=== PATIENT | male | born 1960 | race Hispanic/Latino ===

== ENCOUNTER 2021-04-28 14:49 | Inpatient (IN) | payer SELFPAY ==
[~2021-04-28] VITALS: Ht 165.1 cm; Wt 64.9 kg
[2021-04-28 15:20] VITALS: BP 139/77
[2021-04-28 15:21] LABS: BASOPHILS % (AUTO) 0.4 % (0.0-5.0); HEMATOCRIT 37.5 % (42-54); LYMPHOCYTES % (AUTO) 19.8 % (21.0-51.0); MEAN CORPUSCULAR HEMOGLOBIN 27.6 pg (27.0-33.0); MEAN CORPUSCULAR HGB CONC 34.4 g/dL (32.0-36.0); MEAN CORPUSCULAR VOLUME 80.1 fL (79-99); MONOCYTES % (AUTO) 12.6 % (3.0-13.0); NEUTROPHILS % (AUTO) 62.8 % (40.0-77.0); PLATELET COUNT (AUTO) 171 K/uL (130-400); RED BLOOD CELL COUNT(AUTO) 4.68 MIL/uL (4.50-6.20); WHITE BLOOD COUNT (AUTO) 4.5 K/uL (4.8-10.8)
[2021-04-28 15:31] LABS: CREATININE 0.8 mg/dL (0.5-1.5); POTASSIUM 4.3 mmol/L (3.5-5.1)
[2021-04-28 15:36] LABS: INR 0.97 (0.85-1.15); PROTHROMBIN TIME 10.6 SEC (9.6-11.6)
[2021-04-28 15:37] LABS: PARTIAL THROMBOPLASTIN TIME 28.8 SEC (26.3-35.5)
[2021-04-28 15:45] LABS: BILIRUBIN,TOTAL 0.4 mg/dL (0.2-1.0); TOTAL PROTEIN, SERUM 7.8 g/dL (6.0-8.3)
[2021-04-28 15:49] LABS: B-TYPE NATRIURETIC PEPTIDE 5 pg/mL (0-100)
[2021-04-28 16:39] LABS: APPEARANCE,URINE Clear (CLEAR); BILIRUBIN,URINE Negative (NEGATIVE); COLOR,URINE Yellow (YELLOW); GLUCOSE, URINE (UA) Negative (NEGATIVE); KETONES,URINE Negative (NEGATIVE); LEUKOCYTE ESTERASE ,URINE Negative (NEGATIVE); NITRATE,URINE Negative (NEGATIVE); OCCULT BLOOD,URINE Negative (NEGATIVE); PH,URINE 6.5 (5.0-8.0); PROTEIN,URINE Negative (NEGATIVE); UROBILINOGEN,URINE 0.2 mg/dL (0.2-1.0)
[2021-04-28] MEDS ORDERED: IOHEXOL-350 75 ML VIAL IV ONE (17:04)
[2021-04-28 18:09] VITALS: BP 150/79
[2021-04-28] MEDS ORDERED: ONDANSETRON 4MG INJ IV PRN (20:30)
[2021-04-28 20:36] VITALS: BP 128/76
[2021-04-28 21:28] LABS: HEMOGLOBIN A1C 6.4 % (4.0-6.0)
[2021-04-28] MEDS ORDERED: KETOROLAC 30MG VIAL (30MG/ML) IV ONE (21:30)
[2021-04-28] MEDS: LACTATED RINGERS 1000ML 1,000 ML IV SCH (21:59)
[2021-04-28] MEDS: FAMOTIDINE 20MG VIAL IV SCH (21:59)
[2021-04-28 22:31] LABS: AMPHET/METH SCREEN,URINE NEGATIVE (NEGATIVE); BARBITURATE SCREEN, URINE NEGATIVE (NEGATIVE); BENZODIAZEPINES SCREEN,URINE NEGATIVE (NEGATIVE); CANNABINOID SCREEN,URINE NEGATIVE (NEGATIVE); COCAINE SCREEN,URINE NEGATIVE (NEGATIVE); OPIATE SCREEN,URINE NEGATIVE (NEGATIVE); PHENCYCLIDINE SCREEN,URINE NEGATIVE (NEGATIVE)
[2021-04-29] VITALS (12 sets, daily range): BP systolic 117–148; BP diastolic 62–94
[2021-04-29 09:18] LABS: CHOLESTEROL 138 mg/dL (<200); HDL CHOLESTEROL 33 mg/dL (29-71); LDL DIRECT 90 mg/dL (0-99); TRIGLYCERIDES 78 mg/dL (30-200)
[2021-04-29] MEDS: FAMOTIDINE 20MG VIAL IV SCH ×2 (09:47→21:38)
[2021-04-29] MEDS ORDERED: GADOTERATE MEGLUMINE 10 MMOL/20 ML VIAL IV ONE (11:13)
[2021-04-29] MEDS: LACTATED RINGERS 1000ML 1,000 ML IV SCH (14:15)
[2021-04-29] MEDS ORDERED: GABA600T10 PO (20:16)
[2021-04-29] MEDS ORDERED: AMLO-257 PO ×2 (20:16→22:46)
[2021-04-29] MEDS ORDERED: ROPI3TAB5 PO ×2 (20:16→22:46)
[2021-04-29] MEDS ORDERED: ASPI-1197 PO (20:16)
[2021-04-29] MEDS ORDERED: LOSA50TA64 PO (20:16)
[2021-04-29] MEDS ORDERED: TRAM50TA4 PO ×2 (20:16→22:46)
[2021-04-30] VITALS (7 sets, daily range): BP systolic 118–158; BP diastolic 63–87
[2021-04-30] MEDS: LACTATED RINGERS 1000ML 1,000 ML IV SCH ×2 (02:49→12:53)
[2021-04-30] MEDS: FAMOTIDINE 20MG VIAL IV SCH ×2 (06:59→20:34)
[2021-04-30 10:02] LABS: CREATININE 0.8 mg/dL (0.5-1.5); POTASSIUM 4.3 mmol/L (3.5-5.1)
[2021-04-30] MEDS ORDERED: TRAMADOL HCL 50 MG TABLET PO PRN ×2 (15:00→21:00)
[2021-04-30] MEDS ORDERED: ASPIRIN 81MG CHEW TAB PO ONE (15:00)
[2021-04-30] MEDS ORDERED: LOSARTAN 25 MG TABLET PO ONE (15:00)
[2021-04-30] MEDS ORDERED: GABAPENTIN 300 MG CAPSULE PO SCH (21:00)
[2021-04-30] MEDS ORDERED: ROPINIROLE HCL 1 MG TABLET PO SCH (21:00)
[2021-04-30] MEDS ORDERED: ATORVASTATIN 20 MG TABLET PO SCH (21:00)
[2021-04-30] MEDS ORDERED: TRAMADOL HCL 50 MG TABLET PO ONE (21:00)
[2021-05-01] VITALS: BP 113/66
[2021-05-01 04:00] VITALS: BP 123/74
[2021-05-01 07:09] LABS: BASOPHILS % (AUTO) 0.2 % (0.0-5.0); EOSINOPHILS % (AUTO) 5.7 % (0.0-8.0); HEMATOCRIT 37.4 % (42-54); LYMPHOCYTES % (AUTO) 27.2 % (21.0-51.0); MEAN CORPUSCULAR HEMOGLOBIN 26.5 pg (27.0-33.0); MEAN CORPUSCULAR HGB CONC 32.1 g/dL (32.0-36.0); MEAN CORPUSCULAR VOLUME 82.7 fL (79-99); MONOCYTES % (AUTO) 12.2 % (3.0-13.0); NEUTROPHILS % (AUTO) 54.2 % (40.0-77.0); PLATELET COUNT (AUTO) 156 K/uL (130-400); RED BLOOD CELL COUNT(AUTO) 4.52 MIL/uL (4.50-6.20); RED CELL DISTRIBUTION WIDTH 14.1 % (11.0-15.5); WHITE BLOOD COUNT (AUTO) 4.2 K/uL (4.8-10.8)
[2021-05-01 07:18] LABS: CREATININE 0.8 mg/dL (0.5-1.5)
[2021-05-01 08:00] VITALS: BP 141/78
[2021-05-01] MEDS: FAMOTIDINE 20MG VIAL IV SCH (08:19)
[2021-05-01] MEDS ORDERED: AMLODIPINE 5 MG TAB PO SCH (09:00)
[2021-05-01] MEDS ORDERED: ASPIRIN 81MG CHEW TAB PO SCH (09:00)
[2021-05-01] MEDS ORDERED: ROPINIROLE HCL 1 MG TABLET PO SCH (09:00)
[2021-05-01] MEDS ORDERED: LOSARTAN 25 MG TABLET PO SCH (09:00)
[2021-05-01 12:00] VITALS: BP 125/78
[2021-05-01 14:04] LABS: ALBUMIN 3.8 g/dL (3.5-5.0); BILIRUBIN,DIRECT 0.1 mg/dL (0.0-0.3); BILIRUBIN,TOTAL 0.7 mg/dL (0.2-1.0); TOTAL PROTEIN, SERUM 7.7 g/dL (6.0-8.3)
[2021-05-01] MEDS ORDERED: ATOR10 PO (14:58)
[2021-05-01] MEDS ORDERED: TRAM50TA4 PO (15:33)
[2021-05-01 16:00] VITALS: BP 138/80
== END 2021-05-01 18:37 | disposition home or self-care (01) | DRG 65 ==
LOC: EDH 14:49 → EDHIP 14:50 → 4BH 04-29 21:38
PROVIDERS: ADMIT Internal Medicine; ATTEND Internal Medicine
DX: I63.9 Cerebral infarction, unspecified (principal); G81.91 Hemiplegia, unspecified affecting right dominant side; I10 Essential (primary) hypertension; E11.9 Type 2 diabetes mellitus without complications; G51.0 Bell's palsy; R91.1 Solitary pulmonary nodule; Z20.822 Contact with and (suspected) exposure to COVID-19; Z82.49 Family history of ischemic heart disease and other diseases of the circulatory system; Z90.49 Acquired absence of other specified parts of digestive tract; Z79.82 Long term (current) use of aspirin
CPT/HCPCS: 36415; 70450; 70496; 70498; 70553; 71045; 71250; 80048; 80053; 80061; 80076; 80305; 81003; 82550; 82948; 83036; 83721; 83880; 84132; 84484; 85025; 85610; 85730; 87635; 93005; 93356; 93880; 97039; C8929; G0378; J1885; J3490; J7120; Q9967

== ENCOUNTER → 2022-10-09 | Outpatient (CLI) | payer OTHER ==
[~2022-10-09] MED LIST: AMLO-257 PO; ASPI-1197 PO; ATOR10 PO; GABA600T10 PO; LOSA50TA64 PO; REGADENOSON 0.4 MG/5 ML PF SYG IVP SCH; ROPI3TAB5 PO; TRAM50TA4 PO
== END | disposition home or self-care (01) ==
LOC: SHCH 08:53
PROVIDERS: ATTEND Internal Medicine Cardiovascular Disease
DX: R07.9 Chest pain, unspecified (principal)
CPT/HCPCS: 78452; 93017; J2785; A9500 ×2; 96374

== ENCOUNTER 2023-05-19 22:51 | Emergency (ER) | payer OTHER ==
[~2023-05-19] VITALS: Ht 165.1 cm; Wt 61.2 kg
[~2023-05-19 22:51] MED LIST changes: -REGADENOSON 0.4 MG/5 ML PF SYG IVP SCH; +ROPI3TAB21 PO; -ROPI3TAB5 PO
[2023-05-19 23:14] LABS: BASOPHILS # (AUTO) 0.01 K/uL (0.00-0.20); BASOPHILS % (AUTO) 0.2 % (0.0-5.0); EOSINOPHILS # (AUTO) 0.13 K/uL (0.00-0.70); EOSINOPHILS % (AUTO) 3.1 % (0.0-8.0); HEMATOCRIT 35.2 % (42-54); IMMATURE GRANULOCYTE ABSOLUTE 0.02 K/uL (0-1); LYMPHOCYTES # (AUTO) 1.3 K/uL (1.0-4.8); LYMPHOCYTES % (AUTO) 32.4 % (21.0-51.0); MEAN CORPUSCULAR HEMOGLOBIN 27.3 pg (27.0-33.0); MEAN CORPUSCULAR HGB CONC 33.2 g/dL (32.0-36.0); MEAN CORPUSCULAR VOLUME 82.2 fL (79-99); MONOCYTES # (AUTO) 0.5 K/uL (0.1-1.0); MONOCYTES % (AUTO) 11.4 % (3.0-13.0); NEUTROPHILS # (AUTO) 2.2 K/uL (1.8-7.7); NEUTROPHILS % (AUTO) 52.4 % (40.0-77.0); PLATELET COUNT (AUTO) 156 K/uL (130-400); RED BLOOD CELL COUNT(AUTO) 4.28 MIL/uL (4.50-6.20); RED CELL DISTRIBUTION WIDTH 14.1 % (11.0-15.5); WHITE BLOOD COUNT (AUTO) 4.1 K/uL (4.8-10.8)
[2023-05-19 23:24] LABS: CREATININE 0.8 mg/dL (0.5-1.5); POTASSIUM 3.9 mmol/L (3.5-5.1)
[2023-05-19 23:29] LABS: ALBUMIN 3.8 g/dL (3.5-5.0); BILIRUBIN,TOTAL 0.4 mg/dL (0.2-1.0); TOTAL PROTEIN, SERUM 7.5 g/dL (6.0-8.3)
[2023-05-20] MEDS ORDERED: KETOROLAC 15MG/ML VIAL (15MG/ML) IV ONE (00:30)
[2023-05-20] MEDS ORDERED: DiphenhydrAMINE HCL 50 MG/ML VIAL IV ONE (00:30)
[2023-05-20] MEDS ORDERED: METOCLOPRAMIDE 10 MG/2 ML VIAL IVP ONE (00:30)
[2023-05-20] MEDS ORDERED: OMEP40CA21 PO (00:59)
[2023-05-20 01:04] VITALS: BP 132/60; PULSE 78; RESP 14; O2SAT 98
== END 2023-05-20 01:10 | disposition home or self-care (01) ==
LOC: EDH 22:51
DX: G43.909 Migraine, unspecified, not intractable, without status migrainosus (principal); R07.89 Other chest pain; M19.90 Unspecified osteoarthritis, unspecified site; I25.10 Atherosclerotic heart disease of native coronary artery without angina pectoris; I10 Essential (primary) hypertension; Z79.82 Long term (current) use of aspirin; Z79.899 Other long term (current) drug therapy; Z86.73 Personal history of transient ischemic attack (TIA), and cerebral infarction without residual deficits
CPT/HCPCS: 99285; 71045; 84484 ×2; 80053; 85025; 36415; 93005; 96374; 96375; J1200; J2765; J1885 ×2

== ENCOUNTER 2023-07-11 16:36 | Observation (INO) | payer OTHER ==
[~2023-07-11] VITALS: Ht 165.1 cm; Wt 62.1 kg
[~2023-07-11 16:36] MED LIST changes: +AMOX-426 PO; +ATEN50TA PO; -ATOR10 PO; +ETOD400T4 PO; -GABA600T10 PO; +HYDR-4068 PO; -LOSA50TA64 PO; +NACL1 PO; +OMEP40CA21 PO; -TRAM50TA4 PO
[2023-07-11] MEDS ORDERED: IOHEXOL-350 75 ML VIAL IV ONE ×2 (18:01→18:14)
[2023-07-11 18:02] LABS: BASOPHILS # (AUTO) 0.02 K/uL (0.00-0.20); BASOPHILS % (AUTO) 0.4 % (0.0-5.0); HEMATOCRIT 35.1 % (42-54); IMMATURE GRANULOCYTE ABSOLUTE 0.03 K/uL (0-1); LYMPHOCYTES # (AUTO) 1.3 K/uL (1.0-4.8); LYMPHOCYTES % (AUTO) 28.7 % (21.0-51.0); MEAN CORPUSCULAR HEMOGLOBIN 27.3 pg (27.0-33.0); MEAN CORPUSCULAR HGB CONC 32.5 g/dL (32.0-36.0); MONOCYTES # (AUTO) 0.6 K/uL (0.1-1.0); MONOCYTES % (AUTO) 13.4 % (3.0-13.0); NEUTROPHILS # (AUTO) 2.6 K/uL (1.8-7.7); NEUTROPHILS % (AUTO) 56.9 % (40.0-77.0); PLATELET COUNT (AUTO) 160 K/uL (130-400); RED BLOOD CELL COUNT(AUTO) 4.18 MIL/uL (4.50-6.20); RED CELL DISTRIBUTION WIDTH 14.2 % (11.0-15.5); WHITE BLOOD COUNT (AUTO) 4.6 K/uL (4.8-10.8)
[2023-07-11 18:11] LABS: CREATININE 0.8 mg/dL (0.5-1.5); POTASSIUM 4.5 mmol/L (3.5-5.1)
[2023-07-11 18:24] LABS: ALBUMIN 3.7 g/dL (3.5-5.0); BILIRUBIN,TOTAL 0.6 mg/dL (0.2-1.0); TOTAL PROTEIN, SERUM 7.7 g/dL (6.0-8.3)
[2023-07-11 18:34] LABS: B-TYPE NATRIURETIC PEPTIDE 18 pg/mL (0-100)
[2023-07-11] MEDS ORDERED: ONDANSETRON 4MG INJ IVP PRN (21:00)
[2023-07-11] MEDS ORDERED: ALBUTEROL 0.083% 2.5 MG/3 ML INH IH PRN (21:00)
[2023-07-11] MEDS: 0.9%NACL 1000ML 1,000 ML IV SCH (21:44)
[2023-07-11] MEDS ORDERED: NITR0.4T50 SL (22:11)
[2023-07-11] MEDS ORDERED: LOSA100T59 PO (22:11)
[2023-07-12] VITALS: BP 130/63; PULSE 59; RESP 11
[2023-07-12 01:40] LABS: APPEARANCE,URINE CLEAR (CLEAR); BILIRUBIN,URINE 0.5 mg/dL (NEGATIVE); GLUCOSE, URINE (UA) NEGATIVE (NEGATIVE); KETONES,URINE NEGATIVE (NEGATIVE); LEUKOCYTE ESTERASE ,URINE NEGATIVE Leu/uL (NEGATIVE); NITRATE,URINE NEGATIVE (NEGATIVE); OCCULT BLOOD,URINE NEGATIVE (NEGATIVE); PH,URINE 6.5 (5.0-8.0); PROTEIN,URINE NEGATIVE (NEGATIVE); UROBILINOGEN,URINE 0.2 mg/dL (0.2-1.0)
[2023-07-12 01:43] LABS: ADD UA MICROSCOPIC YES; COLOR,URINE Light-Yellow (YELLOW)
[2023-07-12 02:27] VITALS: O2SAT 100
[2023-07-12 02:43] LABS: BASOPHILS # (AUTO) 0.01 K/uL (0.00-0.20); BASOPHILS % (AUTO) 0.3 % (0.0-5.0); HEMATOCRIT 34.2 % (42-54); IMMATURE GRANULOCYTE ABSOLUTE 0.01 K/uL (0-1); LYMPHOCYTES % (AUTO) 26.7 % (21.0-51.0); MEAN CORPUSCULAR HEMOGLOBIN 27.3 pg (27.0-33.0); MEAN CORPUSCULAR HGB CONC 32.7 g/dL (32.0-36.0); MEAN CORPUSCULAR VOLUME 83.2 fL (79-99); MONOCYTES # (AUTO) 0.4 K/uL (0.1-1.0); MONOCYTES % (AUTO) 10.8 % (3.0-13.0); NEUTROPHILS # (AUTO) 2.4 K/uL (1.8-7.7); NEUTROPHILS % (AUTO) 61.9 % (40.0-77.0); PLATELET COUNT (AUTO) 165 K/uL (130-400); RED BLOOD CELL COUNT(AUTO) 4.11 MIL/uL (4.50-6.20); RED CELL DISTRIBUTION WIDTH 14.3 % (11.0-15.5); WHITE BLOOD COUNT (AUTO) 3.9 K/uL (4.8-10.8)
[2023-07-12 02:58] LABS: HEMOGLOBIN A1C 5.9 % (4.0-6.0)
[2023-07-12 03:06] LABS: CREATININE 0.7 mg/dL (0.5-1.5); PHOSPHORUS 3.8 mg/dL (2.5-4.9); POTASSIUM 4.1 mmol/L (3.5-5.1); THYROID STIMULATING HORMONE 4.51 uIU/mL (0.36-3.74)
[2023-07-12] MEDS ORDERED: SIMVASTATIN 20 MG TABLET PO STA (03:49)
[2023-07-12] MEDS ORDERED: ASPIRIN 81MG CHEW TAB PO ONE (04:00)
[2023-07-12 04:24] VITALS: BP 134/60; PULSE 59; RESP 12
[2023-07-12 08:00] VITALS: BP 141/70; PULSE 60; RESP 21; O2SAT 100
[2023-07-12] MEDS ORDERED: ROPINIROLE HCL 3 MG PO SCH (08:30)
[2023-07-12] MEDS ORDERED: FAMOTIDINE 20MG TAB PO SCH (09:00)
[2023-07-12] MEDS ORDERED: ROPINIROLE HCL 1 MG TABLET PO SCH ×2 (09:00→21:00)
[2023-07-12] MEDS ORDERED: ASPIRIN 81MG CHEW TAB PO SCH (09:00)
[2023-07-12] MEDS: 0.9%NACL 1000ML 1,000 ML IV SCH (09:49)
[2023-07-12 09:52] LABS: CHOLESTEROL 129 mg/dL (<200); HDL CHOLESTEROL 45 mg/dL (29-71); LDL DIRECT 84 mg/dL (0-99); TRIGLYCERIDES 80 mg/dL (30-200)
[2023-07-12 11:23] VITALS: BP 123/73; PULSE 60; RESP 18
[2023-07-12] MEDS ORDERED: ENOXAPARIN SODIUM 40 MG/0.4 ML SYRINGE SQ SCH (14:00)
[2023-07-12] MEDS ORDERED: SIMVASTATIN 10 MG TABLET PO SCH (21:00)
[2023-07-13] MEDS ORDERED: ASPIRIN 81MG CHEW TAB PO SCH (09:00)
== END 2023-07-12 16:26 | disposition home or self-care (01) ==
LOC: EDH 16:36 → EDHIP 20:48 → 2DH 07-12 03:53 → EDHIP 07-12 04:32 → 2CV 07-12 06:41
PROVIDERS: ADMIT Internal Medicine Critical Care Medicine; ATTEND Internal Medicine Critical Care Medicine
DX: I69.351 Hemiplegia and hemiparesis following cerebral infarction affecting right dominant side (principal); E87.1 Hypo-osmolality and hyponatremia; M25.551 Pain in right hip; I10 Essential (primary) hypertension; G25.81 Restless legs syndrome; R29.701 NIHSS score 1; R29.702 NIHSS score 2; Z79.899 Other long term (current) drug therapy
CPT/HCPCS: 96360; 96361 ×2; 99285; 82550 ×3; 83735 ×2; 84484 ×4; 80053; 83880; 85025 ×2; 82948; 36415 ×2; 71045; 70450; 70496; 71275; 70498; 93005; 96372; 83036; 84443; 84100; 80061 ×2; 80048; 87088; 81001; 93306; 93356; 70551; 97161; 97116; G0378 ×17; Q9967 ×2; J1650; A4216

== ENCOUNTER → 2024-02-04 | Outpatient (CLI) | payer OTHER ==
[~2024-02-04] MED LIST changes: -AMOX-426 PO; -ETOD400T4 PO; +LOSA100T59 PO; +NITR0.4T50 SL; +[UNRECOGNIZED DRUG - CODE] PO
[2024-02-04 12:20] LABS: BILIRUBIN,TOTAL 0.9 mg/dL (0.2-1.0); CREATININE 0.8 mg/dL (0.5-1.3); POTASSIUM 4.4 mmol/L (3.5-5.1); TOTAL PROTEIN, SERUM 7.9 g/dL (6.0-8.3)
== END | disposition home or self-care (01) ==
LOC: LAB 09:58
PROVIDERS: ATTEND Internal Medicine Cardiovascular Disease
DX: R07.9 Chest pain, unspecified (principal)
CPT/HCPCS: 36415; 80053

== ENCOUNTER 2024-03-10 15:10 | Emergency (ER) | payer OTHER ==
[~2024-03-10] VITALS: Ht 165.1 cm; Wt 61.7 kg
[2024-03-10 16:34] LABS: BASOPHILS # (AUTO) 0.02 K/uL (0.00-0.20); BASOPHILS % (AUTO) 0.4 % (0.0-5.0); EOSINOPHILS # (AUTO) 0.12 K/uL (0.00-0.70); EOSINOPHILS % (AUTO) 2.4 % (0.0-8.0); HEMATOCRIT 31.3 % (42-54); IMMATURE GRANULOCYTE ABSOLUTE 0.02 K/uL (0-1); LYMPHOCYTES # (AUTO) 1.1 K/uL (1.0-4.8); LYMPHOCYTES % (AUTO) 22.8 % (21.0-51.0); MEAN CORPUSCULAR HEMOGLOBIN 27.7 pg (27.0-33.0); MEAN CORPUSCULAR HGB CONC 34.5 g/dL (32.0-36.0); MEAN CORPUSCULAR VOLUME 80.3 fL (79-99); MONOCYTES # (AUTO) 0.5 K/uL (0.1-1.0); NEUTROPHILS # (AUTO) 3.2 K/uL (1.8-7.7); PLATELET COUNT (AUTO) 147 K/uL (130-400); RED CELL DISTRIBUTION WIDTH 14.2 % (11.0-15.5)
[2024-03-10 16:41] LABS: CREATININE 1.2 mg/dL (0.5-1.3); POTASSIUM 3.7 mmol/L (3.5-5.1)
[2024-03-10] MEDS ORDERED: ACET-2743 PO (17:42)
[2024-03-10 18:32] VITALS: BP 131/71; PULSE 62; RESP 18; O2SAT 99
== END 2024-03-10 18:33 | disposition home or self-care (01) ==
LOC: EDH 15:10
DX: M25.571 Pain in right ankle and joints of right foot (principal); I10 Essential (primary) hypertension; Z79.82 Long term (current) use of aspirin; Z79.899 Other long term (current) drug therapy; Z88.8 Allergy status to other drugs, medicaments and biological substances; Z90.49 Acquired absence of other specified parts of digestive tract; Z98.890 Other specified postprocedural states
CPT/HCPCS: 36415; 80048; 85025; 93971